=== PATIENT | male | born 1985 | race Caucasian/White ===

== ENCOUNTER 2018-09-11 08:55 | Day surgery (SDC) | payer MEDICARE, MEDICAID ==
--- NOTE | 2018-09-11 05:10 | History and Physical - [facility] ---
DATE: 09/10/2018. CHIEF COMPLAINT/HISTORY OF CHIEF COMPLAINT: This patient presents with a history of an intractable cervical and thoracic radiculopathy. The patient does have a history of cervical spine surgery with a plate and screw and surgery at C6-7. Due to the failure of all therapies and multiple surgeries to his lumbar spine with pedicle screw and rods at 3-4, 4-5, and 5-1, he is here for a spinal infusion trial with an implanted catheter with hydromorphone to determine if the implantation of a permanent system can be of any value in his pain control. He identifies the worst area of his pain to be in the mid thoracic through low lumbar area. PAST MEDICAL HISTORY: Hypertension, peripheral edema, degenerative arthritis, depression, and difficulty sleeping. PAST SURGICAL HISTORY: Cervical spine fusion, lumbar spine fusion, spinal cord stimulator, laminectomy implant. MEDICATIONS ON ADMISSION: To be provided. ALLERGIES: None. SOCIAL HISTORY: Caffeine. FAMILY HISTORY: Hypertension SYSTEMS REVIEW: The patient seems appropriate and in no acute distress. PHYSICAL EXAMINATION: GENERAL: Height and weight not available. VITAL SIGNS: Not available. HEENT: Within normal limits. LUNGS: Clear. HEART: Rapid and regular. ABDOMEN: Nontender. MUSCULOSKELETAL: Examination of the musculoskeletal system shows extensive pain throughout the cervical, thoracic, and lumbar regions. Cervical pain extends into his left upper extremity across multiple dermatomes. The thoracic spine pain extends along the rib margins. Lumbar spine pain extends to the low back, hip, and legs, somewhat more left than right. His upper extremity functionality shows sensory changes across multiple dermatomes on the left with weakness in his left upper extremity. There is low back pain with a motor and sensory abnormality extending across an L4-L5 pattern into the left leg. His upper extremity functionality is compromised. His lower extremity functionality is compromised. AMBULATION: Assistive device utilized. NEUROLOGIC: Cranial nerves are intact. IMPRESSION: 1. POST CERVICAL AND LUMBAR LAMINECTOMY SYNDROME, ICD-10 CODE M96.1. 2. RADICULOPATHY, ICD-10 CODE M54.12 AND M54.16. PLAN: The patient is here for an implanted spinal catheter infusion trial with hydromorphone to determine if the implantation of a permanent system can be of any value in pain control. He has had multiple spinal surgeries, both cervical and lumbar. The primary focus of his pain appears to be in the mid to upper thoracic region. The implanted catheter trial will focus on this area. The risks, side effects, and complications have been carefully reviewed and discussed. He was given information through the tax services professional and was put in contact with a clinical specialist. An epidural blood patch will be performed if possible as a prophylactic measure to help prevent spinal headache. If it is not possible because of the multiple levels of fusion, more conservative efforts will be used as a measure to prevent spinal headache. All of the risks , side effects, and complications were reviewed in detail. He understands and has consented. JOB NUMBER: [id number] cc: Primary Care Physician LEWIS
[~2018-09-11 08:55] MED LIST: ACETAMINOPHEN 1,000 MG/100 ML BTL IV ONE; CEFAZOLIN 1 Gram 1 GM/50 ML BAG IVPB ONE; CEFAZOLIN 2 Gram 2 GM/50 ML BAG IVPB ONE; FAMOTIDINE 20MG TABLET PO ONE; HYDROMORPHONE PF 2MG/ML AMP 0.008 MG in 0.9 % SODIUM CHLORIDE 10ML VIA 0.996 ML IV ONE; HYDROMORPHONE PF 2MG/ML AMP 8 MG in 0.9 % SODIUM CHLORIDE 500ML 496 ML IV ONE; MECLIZINE 25 MG TABLET PO ONE; METOCLOPRAMIDE 10 MG TABLET PO ONE
[2018-09-11] MEDS ORDERED: PROPOFOL 10 MG/ML VIAL IV ONE (08:56)
[2018-09-11] MEDS ORDERED: MIDAZOLAM HCL 2MG/2ML VIAL IV ONE (08:56)
[2018-09-11] MEDS ORDERED: FENTANYL PF 100MCG/2ML VIAL IV ONE (08:56)
[2018-09-11] MEDS ORDERED: KETAMINE HCL 100MG/1ML VIAL INJ ONE (08:56)
[2018-09-11] MEDS ORDERED: LIDOCAINE 2% MDV (20MG/ML) 20ML VIAL IV ONE (08:56)
[2018-09-11] MEDS ORDERED: LIDOCAINE 1% W/EPI 1:200,000 MPF 30ML SQ ONE (08:56)
[2018-09-11] MEDS ORDERED: BUPIVACAINE 0.5% W/EPI MPF 30 ML VIAL IVP ONE (08:56)
[2018-09-11] MEDS ORDERED: HYDROCODONE/APAP 7.5/325MG TABLET PO PRN ×2 (13:57)
[2018-09-11] MEDS ORDERED: METOCLOPRAMIDE 10 MG TABLET PO PRN (13:57)
[2018-09-11] MEDS ORDERED: HYDROMORPHONE HCL 2 MG/ML VIAL IM PRN ×2 (13:57)
[2018-09-11] MEDS ORDERED: DIPHENHYDRAMINE HCL 50 MG/ML VIAL IVP PRN ×2 (13:57)
[2018-09-11] MEDS ORDERED: TEMAZEPAM 15 MG CAPSULE PO PRN ×2 (13:57)
[2018-09-11] MEDS ORDERED: NALOXONE 0.4 MG/1 ML VIAL IVP PRN (13:57)
[2018-09-11] MEDS ORDERED: AL HYDROX/MAG HYDROX 30ML UD PO PRN (13:57)
[2018-09-11] MEDS ORDERED: ACETAMINOPHEN 325 MG TAB PO PRN ×2 (13:57)
[2018-09-11] MEDS ORDERED: OXYCODONE/APAP 10MG-325MG TABLET PO PRN ×2 (13:57)
[2018-09-11] MEDS ORDERED: DIPHENHYDRAMINE HCL 25 MG CAPSULE PO PRN ×2 (13:57)
[2018-09-11] MEDS ORDERED: RINGERS SOLUTION,LACTATED 1,000 ML IV SCH (13:57)
[2018-09-11] MEDS ORDERED: METOCLOPRAMIDE HCL 10 MG/2 ML VIAL IVP PRN (13:57)
[2018-09-11] MEDS ORDERED: SENNOSIDES/DOCUSATE SODIUM UD CAPSULE PO PRN ×2 (13:57)
[2018-09-11] MEDS: OXYCODONE HCL 5 MG TABLET PO SCH ×2 (15:22→18:31)
[2018-09-11] MEDS ORDERED: GABAPENTIN 300 MG CAPSULE PO SCH (16:00)
[2018-09-11] MEDS ORDERED: CEFAZOLIN 2 Gram 2 GM/50 ML BAG IVPB SCH (19:00)
[2018-09-12] MEDS ORDERED: LEVOTHYROXINE SODIUM 50 MCG TABLET PO SCH (07:00)
[2018-09-12] MEDS ORDERED: AMLODIPINE BESYLATE 5MG TAB PO SCH (10:00)
[2018-09-12] MEDS ORDERED: DULOXETINE HCL 30 MG CAPSULE.DR PO SCH (10:00)
--- NOTE | 2018-09-13 09:04 | RADIOLOGY REPORT ---
EXAM: THORACIC SPINE, SINGLE VIEW HISTORY: PAIN STIMULATOR IMPLANT. TECHNIQUE: A single frontal view of the thoracic spine was obtained. Comparison: None. FINDINGS: Spinal stimulator leads project near the level of the T7 through T9 vertebra. Please see operative report for additional details. Suggestion of an additional thin catheter or lead superimposing the upper thoracic region. IMPRESSION: ABOVE. JOB NUMBER: [id number] MTDD
--- NOTE | 2018-09-13 13:45 | Operative Note ---
PREOPERATIVE DIAGNOSIS: 1. POSTLUMBAR LAMINECTOMY AND CERVICAL LAMINECTOMY SYNDROME, ICD-10 CODE M96.1. 2. CERVICAL AND LUMBAR RADICULOPATHY, ICD-10 CODE M54.12 AND M54.16. POSTOPERATIVE DIAGNOSIS: 1. POSTLUMBAR LAMINECTOMY AND CERVICAL LAMINECTOMY SYNDROME, ICD-10 CODE M96.1. 2. CERVICAL AND LUMBAR RADICULOPATHY, ICD-10 CODE M54.12 AND M54.16. PROCEDURES: 1. Fluoroscopically guided spinal access at L3-4. Placement of thin-walled spinal catheter at T2. 2. Diagnostic myelography with radiologic supervision and interpretation. 3. Spinal opioid bolus of hydromorphone 0.008 mg. 4. Incision, subcutaneous dissection, and creation of subcutaneous pouch. Anchoring of spinal catheter to supraspinous fascia with anchoring device and nonabsorbable suture. 5. Incision, subcutaneous dissection, and creation of subcutaneous pouch at the right posterior gluteal margin, ultimately for the pump. 6. Interface midline spinal catheter to second catheter component. Second catheter component tunneled to posterior pouch. 7. Second catheter component interfaced with third catheter component by way of connector. Third catheter component tunneled 6.0 cm superior exiting the skin. Interfaced to external pump set to deliver hydromorphone at 0.8 mg per day. 8. Epidural blood patch at L4-5 using 18-Gauge Tuohy needle with loss of resistance, 20 mL autologous blood drawn with sterile technique, left antecubital. 9. Midline incision closed using Stratafix suture; #2-0 for the fascia and #3- 0 for the skin. Closure of right posterior pouch incision with running nylon. 9. Placement of dressings securing catheter and all connections under sterile dressing. 10. Patient transported to the recovery room flat with a pillow under the head and knees, stable with no side effects. No unusual symptoms or pain. Full functionality of the upper and lower extremities. SURGEON: Cain Romero D.O. ANESTHESIA: Local sedation. ANESTHESIA PROVIDER: Kallie Pressley CRNA. INDICATIONS: This patient presents with a history of combined postcervical laminectomy and lumbar laminectomy pain pattern. He has mid to upper thoracic spine pain as a result. He has a radicular component which seems to involve components from the cervical spine as well as the lumbar spine. He is here for an implanted spinal catheter infusion trial with hydromorphone to determine if the implantation of a permanent system can be of any value in pain control. DESCRIPTION OF PROCEDURE: Intravenous lines, vital sign monitoring, and intravenous sedation. Prepped and draped with sterile technique with the patient was positioned prone. The interspace at L3-4, which is above his fusion with hardware, was marked. The skin was infiltrated. A 20-gauge spinal needle, beveled with long axis, through a paramedian approach was inserted into the spinal space using AP and lateral imaging for guidance. With cerebrospinal fluid flow, a thin-walled spinal catheter was advanced and positioned at his focus of pain at T2. Cerebrospinal fluid was still noted through the catheter. Diagnostic myelography was performed. The flow characteristics were appropriate and smooth and linear in the space. With this confirmation of flow characteristics and catheter position, a bolus of hydromorphone 0.008 mg was given in the spinal space. Cerebrospinal fluid still noted through the catheter. The catheter was clamped. The skin above and below the needle was infiltrated. An incision was made and subcutaneous dissection was conducted to the supraspinous fascia. The needle was removed, and the catheter was anchored to the supraspinous fascia with an anchoring device and nonabsorbable suture. At the right posterior gluteal margin, ultimately the site picked by the patient for the pump, the skin was infiltrated. An incision was made and subcutaneous dissection was conducted to form a small pouch. Because the catheter component was limited, the spinal catheter was interfaced with a second catheter component by way of connector. This second catheter component was then tunneled into the posterior pouch. Once into the pouch, the second catheter component was interfaced with a third catheter component by way of a connector. The third catheter component was tunneled 6.0 cm superior from this pouch exiting the skin. This third catheter component was interfaced to an external pump which was set to deliver hydromorphone at 0.08 mg a day. The midline incision was then closed with Stratafix suture; #2-0 for the fascia and #3-0 for the skin. The posterior pouch incision was closed with running nylon. At L4-5, one level below the dural puncture, the skin was infiltrated. An 18- gauge Tuohy needle was inserted into the epidural space without injury or trauma. Simultaneously 20 mL of autologous blood was drawn using sterile technique from the left antecubital area. This blood was placed onto the field , and an epidural blood patch was performed with this blood in this area. The needle was removed, and the area was cleaned. Dressing was placed securing catheter and all connections under sterile dressing. A Dermabond closure was used over the midline incision. He was then transported flat with a pillow under the head and knees stable with no unusual pain or symptom pattern. He had full functionality of the upper and lower extremities. He will be kept flat for four hours and then slowly elevated for one hour. He will then be evaluated for possible discharge home. DISCHARGE INSTRUCTIONS: 1. The site to remain clean and dry. No showering or bathing in any way that would disrupt the dressings. If this happens, contact the clinic. 2. Standard medications to be resumed including the antibiotic Levaquin 500 mg once a day for 14 days. 3. The trial is scheduled for two weeks. He will have his first increase in the office in the next two to three days. At the end of the trial period, we will either implant the pump or remove the implanted catheter. 4. The potential spinal opioid side effects including respiratory depression, nausea, vomiting, constipation, urinary retention, lightheadedness, and rash have all been discussed and reviewed. 5. All other instructions were provided including numbers to contact with problems. JOB NUMBER: [id number] cc: Jose Rafael Russell
== END 2018-09-11 19:30 | disposition home or self-care (01) ==
LOC: SUR 08:55 → MEDSURG 13:51 → SUR 19:30
PROVIDERS: ATTEND Pain Medicine Interventional Pain Medicine
DX: M96.1 Postlaminectomy syndrome, not elsewhere classified (principal); M54.12 Radiculopathy, cervical region; M54.16 Radiculopathy, lumbar region; I10 Essential (primary) hypertension; E03.9 Hypothyroidism, unspecified; G62.9 Polyneuropathy, unspecified
CPT/HCPCS: 62350; 62362; 62273; 01936; 72020; Q9967; J3010; J0690 ×2; J1170; J3490; J7040; J7120

== ENCOUNTER 2018-09-25 12:42 | Day surgery (SDC) | payer MEDICARE, MEDICAID ==
--- NOTE | 2018-09-25 06:54 | History and Physical - [facility] ---
CHIEF COMPLAINT/HISTORY OF CHIEF COMPLAINT: This patient with an ongoing implanted spinal catheter infusion trial using Hydromorphone has established up to 50-75% pain control with the implanted catheter infusing Hydromorphone. Due to the failure of all therapies and the success of the current trial, he is requesting implantation of a permanent system. PAST MEDICAL HISTORY: Hypertension, peripheral edema, degenerative arthritis, and difficulty sleeping. PAST SURGICAL HISTORY: Cervical spine fusion, lumbar spine fusion, and laminectomy stimulator. MEDICATIONS ON ADMISSION: List to be provided. ALLERGIES: None. FAMILY/PSYCHOSOCIAL HISTORY: Social history - Caffeine. Family history - Hypertension. SYSTEMS REVIEW: The patient is appropriate in no acute distress. PHYSICAL EXAMINATION: The dressings for the implanted catheter trial appear to be intact. The externalized pump and the externalized catheter components appear to be intact. Essential underlying pain pattern diffuse throughout the cervical, thoracic, and lumbar with the radicular component cervical and lumbar. Motor and sensory evaluations are unchanged since his last evaluation for the implanted catheter. NEUROLOGIC: Cranial nerves are intact. IMPRESSION: 1. POST CERVICAL LUMBAR LAMINECTOMY SYNDROME, ICD-10 CODE M96.1 WITH CERVICAL, THORACIC, AND LUMBAR RADICULOPATHY, ICD-10 CODE M54.12, M54.14 AND M54.16. 2. IMPLANTED SPINAL CATHETER INFUSION TRIAL USING HYDROMORPHONE. PLAN: The patient is here for implantation of a permanent system. We will remove all of the externalized components and implant the pump interfacing the implanted catheter. The procedure can be outpatient. The risks, side effects, and complications are identified and discussed. JOB NUMBER: [id number] MTDD
[~2018-09-25 12:42] MED LIST changes: +HYDROMORPHONE HCL 0.04 GM in 0.9 % SODIUM CHLORIDE 10ML VIA 20 ML IV ONE; -HYDROMORPHONE PF 2MG/ML AMP 8 MG in 0.9 % SODIUM CHLORIDE 500ML 496 ML IV ONE
[2018-09-25] MEDS ORDERED: FENTANYL PF 100MCG/2ML VIAL IV ONE (12:43)
[2018-09-25] MEDS ORDERED: PROPOFOL 10 MG/ML VIAL IV ONE (12:43)
[2018-09-25] MEDS ORDERED: HYDROMORPHONE HCL 2 MG/ML VIAL IV ONE (12:43)
[2018-09-25] MEDS ORDERED: MIDAZOLAM HCL 2MG/2ML VIAL IV ONE (12:43)
[2018-09-25] MEDS ORDERED: LIDOCAINE 2% MDV (20MG/ML) 20ML VIAL IV ONE (12:43)
[2018-09-25] MEDS ORDERED: BUPIVACAINE 0.5% W/EPI MPF 30 ML VIAL SQ ONE (16:23)
[2018-09-25] MEDS ORDERED: LIDOCAINE 1% W/EPI 1:200,000 MPF 30ML SQ ONE (16:23)
[2018-09-25] MEDS ORDERED: CEFAZOLIN 1G VIAL IM ONE (16:27)
--- NOTE | 2018-09-28 13:34 | Operative Note ---
DATE: 09/25/2018. PRIMARY CARE PHYSICIAN: Nas Whaley M.D. PREOPERATIVE DIAGNOSES: 1. POST LUMBAR LAMINECTOMY SYNDROME, ICD-10 CODE M96.1. 2. RADICULOPATHY, ICD-10 CODE M54.16 AND M54.17. 3. IMPLANTED SPINAL CATHETER INFUSION TRIAL WITH HYDROMORPHONE. POSTOPERATIVE DIAGNOSES: 1. POST LUMBAR LAMINECTOMY SYNDROME, ICD-10 CODE M96.1. 2. RADICULOPATHY, ICD-10 CODE M54.16 AND M54.17. 3. IMPLANTED SPINAL CATHETER INFUSION TRIAL WITH HYDROMORPHONE. PROCEDURES: 1. Incision, subcutaneous dissection, and formation of subcutaneous pouch at right posterior gluteal margin for placement of pump, a Medtronic 20 mL programmable pump. 2. Internal spinal catheter and external spinal catheter connection cut. External catheter removed by pulling away from the incision. 3. Internal permanent catheter revised and resected with connector interfacing to second catheter component which will interface to pump. 4. Placement of 20 mL programmable Medtronic pump prefilled with hydromorphone 10 mg per mL interfaced with revised catheter. 5. Placement of pump catheter into pouch, securing to posterior fascia with nonabsorbable suture. 6. Placement of curved 24-gauge Geronimo needle into access port programmable pump aspirating and clearing catheter of opioid and cerebrospinal fluid mixture. 7. Diagnostic myelography through access port with radiologic supervision and interpretation, confirming catheter position at T1-2. Appropriate myelogram flow characteristics and appropriate functionality of the system noted. 8. Closure of incision using Stratafix suture; #2-0 for the fascia and #3-0 for the skin after pump was secured to the posterior fascia with nonabsorbable suture at three points with pump eyelets. Dermabond closure. 9. Programming of pump to deliver by continuous infusion hydromorphone at 0.75 mg a day; an increase from 0.65 mg end trial dose. SURGEON: Cain Romero D.O. ANESTHESIA: Local sedation. ANESTHESIA PROVIDER: Kallie Pressley CRNA. INDICATIONS: This patient presents with a history of intractable postlumbar laminectomy. Due to the failure of all other therapies, an implanted spinal catheter infusion trial was conducted with up to 75 percent pain control. Due to the failure of all other therapies and the success of the trial, he is here for implantation of a permanent system. DESCRIPTION OF PROCEDURE: Intravenous lines, vital sign monitoring, and intravenous sedation by Anesthesia. The patient was positioned prone. Prepped and draped with sterile technique. All of the dressings were removed. The external pump was removed. An incision at the right posterior gluteal margin which was meant for pump was infiltrated. An incision was made and subcutaneous dissection was conducted to form a pouch of suitable size and depth for a Medtronic 20 mL programmable pump. The internal catheter connection to the external catheter was identified in the pouch. This was clamped and the external catheter was cut and removed by pulling away from the incision. The internal catheter was then revised and resected with a connector and a second catheter component that would interface to pump. A new 20 mL programmable pump Medtronic pump prefilled with hydromorphone 2.0 mg per mL was placed onto the field. The revised catheter was then interfaced with the pump. Antibiotic irrigation and Bovie for hemostasis. The pump was placed into the pouch and secured to the posterior fascia with nonabsorbable suture at three points with pump eyelets. With the pump in the pouch, a curved 24-gauge Geronimo needle was inserted into the access port, and 1.0 mL of catheter contents was aspirated, clearing the catheter of opioid and cerebrospinal fluid mixture. Diagnostic myelography was then performed through the access port. Contrast flow characteristics showed the tip of the catheter at T1-2 with appropriate myelogram flow noted. Full functionality of the catheter was noted with no kinks, bends, or leaks. System function was assured. The incision was then closed using Stratafix suture; #2-0 for the fascia and #3-0 for the skin. Dermabond closure was used to approximate the edges of the wound. The pump was then programmed to deliver by continuous infusion hydromorphone at 0.75 mg per day. He was transported to the recovery room stable with no side effects from the procedure or the sedation. When fully awake and alert he was prepared for discharge. DISCHARGE INSTRUCTIONS: 1. The sites are to remain clean and dry. No showering or bathing in any way that would disrupt dressings. If this happens, contact the clinic. 2. Standard medications to be resumed including Levaquin the antibiotic 500 mg once a day for seven more days. 3. The office will contact the patient. He will be evaluated in the office in the next 7 to 10 days to ensure integrity of the dressings and the incisions. He should keep his activities low up to that point in time and should limit bend , lift, push, and pull. 4. All other instructions were provided. 5. The potential side effects from spinal opioids including respiratory depression, nausea, vomiting, constipation, urinary retention, light headedness , and rash have all been reviewed. 7. He was then discharged stable JOB NUMBER: [id number] cc: Jose Rafael Russell
== END 2018-09-25 17:15 | disposition home or self-care (01) ==
LOC: SUR 12:42
PROVIDERS: ATTEND Pain Medicine Interventional Pain Medicine
DX: M96.1 Postlaminectomy syndrome, not elsewhere classified (principal); M54.16 Radiculopathy, lumbar region; M54.17 Radiculopathy, lumbosacral region; I10 Essential (primary) hypertension; E03.9 Hypothyroidism, unspecified; G62.9 Polyneuropathy, unspecified
CPT/HCPCS: 62350; 62362; 01936; 62367; Q9967; J3010; J0690 ×2; J1170 ×2; C1755; C1776